=== PATIENT | male | born 1995 | race Caucasian/White ===

== ENCOUNTER 2023-01-18 22:06 | Emergency (ER) | payer OTHER, SELFPAY ==
[2023-01-18 22:09] VITALS: BP 154/74; PULSE 99; RESP 16; TEMP 36.2; O2SAT 96; BMI 29.8
--- NOTE | 2023-01-18 23:05 | ED.GENADULT ---
HPI - General Adult General Chief complaint: General Medical Stated complaint: ? neck pain Time Seen by Provider: 01/18/23 23:04 Source: patient Mode of arrival: ambulatory Limitations: other (Deaf and mute ISL was used) History of Present Illness HPI narrative: Patient deaf oz mutlizet complaining of pain in the sides of the neck for last few days had similar problem few years ago had MRI done in 2019 which showed muscle spasm patient does heavy lifting at work no paresthesia in the fingers no muscle weakness pain is in the side of the neck no history of muscular dystrophy in the family patient came from [facility] Related Data Previous Rx's Medication Instructions Recorded cyclobenzaprine 10 mg tablet 10 mg PO Q8H #20 tabs 01/18/23 diclofenac sodium 1 % topical gel 2 g topical BID #100 grams 01/18/23 (Arthritis Pain (diclofenac)) tramadol 50 mg tablet 50 mg PO Q6H PRN pain #20 tabs 01/18/23 Allergies Allergy/AdvReac Type Severity Reaction Status Date / Time No Known Allergies Allergy Verified 01/18/23 23:26 Review of Systems Review of Systems: Yes all other systems are reviewed and are negative [facility] Social History Social History Advance Directives: No Advance Directives Information Provided: No Physical Exam ED Vital Signs: Vital Signs - 24 hr 01/18/23 22:09 Temperature 97.2 F Pulse Rate 99 Respiratory Rate 16 Blood Pressure 154/74 H Pulse Oximetry 96 Oxygen Delivery Method Room Air BMI result Body Mass Index 29.8 Appearance: Alert. Deaf and mute ISL was used ENT: Pharynx normal. Oral Mucosa moist Neck: Normal inspection. Neck supple. Mild muscle tenderness in trapezius area bilateral no midline tenderness no significant spasm CVS: Normal heart rate and rhythm. Pulses normal. Respiratory: No respiratory distress. Equal air entry bilateral, Abdomen: Soft and nontender. Bowel sounds are present, Skin: Skin warm and dry. Normal skin color. Normal skin turgor. Extremities: No lower extremity edema. No calf tenderness Neuro: Oriented X 3. No motor deficit. No sensory deficit.No cerebellar signs , cranial nerves II-XII intact Medications Administered Discontinued Medications Generic Name Dose Route Start Last Admin Trade Name Freq PRN Reason Stop Dose Admin Cyclobenzaprine HCl 10 mg 01/18/23 23:26 01/18/23 23:33 Cyclobenzaprine Hcl 10 Mg Tablet PO 01/18/23 23:27 10 mg ONCE ONE Administration Tramadol HCl 50 mg 01/18/23 23:26 01/18/23 23:33 Tramadol Hcl 50 Mg Tablet PO 01/18/23 23:27 50 mg ONCE ONE Administration Medical Decision Making Medical Decision Making [facility] Narrative: Patient nonspecific muscle spasm previous MRI negative except muscle spasm will discharge patient home on tramadol and Flexeril Differential Diagnosis Differential Diagnoses: The differential diagnosis associated with the presentation includes Muscle spasm/ arthritis/fibromyalgia Discharge Plan Discharge Clinical Impression: Muscle spasms of neck Patient Disposition: Home, Self-Care Instructions: Muscle Spasm (ED) Additional Instructions: Apply ice pack Avoid lifting heavy stuff Apply ointment at the painful area 2 times a day as needed Pain medication and muscle relaxants as prescribed Follow with PCP Prescriptions: New cyclobenzaprine 10 mg tablet 10 mg PO Q8H Qty: 20 0RF tramadol 50 mg tablet 50 mg PO Q6H PRN (Reason: pain) Qty: 20 0RF diclofenac sodium [Arthritis Pain (diclofenac)] 1 % gel 2 g topical BID Qty: 100 0RF Rx Instructions: apply to painful area twice daily as needed Referrals: Janelle Rodriguez MD [Physician] - 1 week
[2023-01-18] MEDS: Cyclobenzaprine HCl 10 MG TABLET PO (23:33)
[2023-01-18] MEDS: traMADoL HCL 50 MG TABLET PO (23:33)
== END 2023-01-18 23:45 | disposition home or self-care (01) ==
PROVIDERS: Emergency Provider Internal Medicine
DX: M62.838 Other muscle spasm (principal)
CPT/HCPCS: 99283